=== PATIENT | male | born 1990 | race Hispanic/Latino ===

== ENCOUNTER 2019-04-29 19:56 | Emergency (ER) | payer OTHER ==
--- NOTE | 2019-04-29 20:32 | Event Note ---
ED Screening Note Date of service: 04/29/19 Time: 20:30 ED Screening Note: 29 y o male presents to Ed cc of Right big toe swelling, leaking and bleeding x 3 weeks This initial assessment/diagnostic orders/clinical plan/treatment(s) is/are subject to change based on patients health status, clinical progression and re- assessment by fellow clinical providers in the ED. Further treatment and workup at subsequent clinical providers discretion. Patient/guardian urged not to elope from the ED as their condition may be serious if not clinically assessed and managed. Initial orders include:
[2019-04-30] MEDS ORDERED: IBUPROFEN PO ONE (00:53)
[2019-04-30] MEDS ORDERED: XYLOCAINE 1% MPF 5 mL INFILTRATI ONE (00:53)
[2019-04-30] MEDS ORDERED: ZOFRAN ODT ONE (02:33)
[2019-04-30] MEDS ORDERED: TRIPLE ANTIBIOTIC TP ONE ×2 (02:40→02:41)
[2019-04-30] MEDS ORDERED: ZOFRAN ODT PO ONE (02:40)
--- NOTE | 2019-04-30 02:54 | Emergency Department Report ---
ED Extremity Problem HPI - General Chief complaint: Extremity Injury, Lower Stated complaint: RT FOOT PAIN Time Seen by Provider: 04/29/19 20:29 Source: patient Mode of arrival: Ambulatory Limitations: No Limitations - History of Present Illness Initial comments: Patient is a 29-year-old white male with no past medical history presents to the ED with complaint of painful swollen erythematous rash with purulent discharge on the right great toe due to a right great toe ingrown toenail infection for the last 1 month, worse in the last 2 days. Patient states that he has been taking Bactrim DS twice a day for the same but there has been no improvement. Patient denies fever, chills, nausea, vomiting, dizziness, chest pain, shortness of breath, numbness and tingling of the right great toe, traumatic injury or low back pain MD Complaint: extremity swelling (right great toe pain, swelling and erythematous rash), other (right great ingrown toenail infection) -: month(s) (1) Location: right, toe (right great toe) History of Same: Yes -: Yes myalgia, No fever, No associated dyspnea, No associated chest pain Radiation: none Severity scale (0 -10): 8 Quality: aching, sharp Consistency: constant Improves with: nothing Worsens with: nothing Associated Symptoms: denies other symptoms. denies: chest pain, shortness of breath, fever, myalgias, arthralgias, rash - Related Data Previous Rx's Medication Instructions Recorded Last Taken Type Ciprofloxacin HCl [Ciprofloxacin 500 mg PO Q12HR #20 tab 04/30/19 Unknown Rx TAB] Ibuprofen [Motrin] 600 mg PO Q8H PRN #20 tablet 04/30/19 Unknown Rx Allergies Allergy/AdvReac Type Severity Reaction Status Date / Time No Known Allergies Allergy Unverified 04/30/19 02:40 ED Review of Systems ROS: Stated complaint: RT FOOT PAIN Other details as noted in HPI Constitutional: denies: chills, fever Eyes: denies: eye pain, eye discharge, vision change ENT: denies: ear pain, throat pain Respiratory: denies: cough, shortness of breath, wheezing Cardiovascular: denies: chest pain, palpitations Endocrine: no symptoms reported Gastrointestinal: denies: abdominal pain, nausea, diarrhea Genitourinary: denies: urgency, dysuria Musculoskeletal: joint swelling (Right great toenail ), arthralgia (right great toe), other (swollen erythematous rash on right great toe due to ingrown right great toenail). denies: back pain Skin: rash (erythematous rash on right great toe due to ingrown right great toenail). denies: lesions Neurological: denies: headache, weakness, paresthesias Psychiatric: denies: anxiety, depression Hematological/Lymphatic: denies: easy bleeding, easy bruising ED Past Medical Hx - Past Medical History Previous Medical History?: No - Surgical History Past Surgical History?: No - Social History Smoking Status: Never Smoker Substance Use Type: None - Medications Home Medications: Home Medications Medication Instructions Recorded Confirmed Last Taken Type Ciprofloxacin HCl [Ciprofloxacin 500 mg PO Q12HR #20 tab 04/30/19 Unknown Rx TAB] Ibuprofen [Motrin] 600 mg PO Q8H PRN #20 tablet 04/30/19 Unknown Rx ED Physical Exam - General Limitations: No Limitations General appearance: alert, in no apparent distress - Head Head exam: Present: atraumatic, normocephalic, normal inspection - Eye Eye exam: Present: normal appearance, PERRL, EOMI. Absent: scleral icterus, conjunctival injection, nystagmus Pupils: Present: normal accommodation - ENT ENT exam: Present: normal exam, normal orophraynx, mucous membranes moist, TM's normal bilaterally, normal external ear exam - Neck Neck exam: Present: normal inspection, full ROM - Respiratory Respiratory exam: Present: normal lung sounds bilaterally. Absent: respiratory distress, wheezes, rales, rhonchi, chest wall tenderness - Cardiovascular Cardiovascular Exam: Present: regular rate, normal rhythm, normal heart sounds. Absent: systolic murmur, diastolic murmur, rubs, gallop - GI/Abdominal GI/Abdominal exam: Present: soft, normal bowel sounds. Absent: tenderness, guarding, rebound, hyperactive bowel sounds, hypoactive bowel sounds, organomegaly - Rectal Rectal exam: Present: deferred - Extremities Exam Extremities exam: Present: normal inspection, full ROM, tenderness (right great toe due to ingrown toenail), normal capillary refill, joint swelling (right great toe due to erythematous swollen ingrown right great toenail) - Back Exam Back exam: Present: normal inspection, full ROM. Absent: tenderness, CVA tenderness (L), muscle spasm, paraspinal tenderness - Neurological Exam Neurological exam: Present: alert, oriented X3, CN II-XII intact, normal gait, reflexes normal - Psychiatric Psychiatric exam: Present: normal affect, normal mood - Skin Skin exam: Present: warm, dry, intact, normal color, rash (erythematous nonfluctuant rash on right great toe due to ingrown toenail), erythema ED Course - Reevaluation(s) Reevaluation #1: 04/30/19 02:58 Patient is alert and oriented 3 and is not in distress. Patient was treated for pain in the ED and the right great toe ingrown toenail was cleaned and hand removed after application of local anesthetic, lidocaine 1% solution. The patient tolerated the procedure well. Patient was discharged home on antibiotics and pain medications and advised to follow-up with his primary care physician in 7-10 days for reevaluation. Patient was advised to return to the ED immediately if symptoms get worse. ED Medical Decision Making - Medical Decision Making Patient is alert and oriented 3 and is not in distress. Patient was treated for pain in the ED and the right great toe ingrown toenail was cleaned and hand removed after application of local anesthetic, lidocaine 1% solution. The patient tolerated the procedure well. Patient was discharged home on antibiotics and pain medications and advised to follow-up with his primary care physician in 7-10 days for reevaluation. Patient was advised to return to the ED immediately if symptoms get worse. - Differential Diagnosis cellulitis of right great toe; infected ingrown toenail Critical care attestation.: If time is entered above; I have spent that time in minutes in the direct care of this critically ill patient, excluding procedure time. ED Disposition Clinical Impression: Ingrown toenail of right foot with infection, Ingrown right greater toenail Disposition: DC-01 TO HOME OR SELFCARE Is pt being admited?: No Does the pt Need Aspirin: No Condition: Stable Instructions: Toenail/Fingernail Removal (ED), Cellulitis (ED) Additional Instructions: Take medications with food, drink plenty of fluids and follow-up with your [facility] care physician in 5-7 days for reevaluation. Return to the ED immediately if symptoms get worse. Prescriptions: Ciprofloxacin HCl [Ciprofloxacin TAB] 500 mg PO Q12HR #20 tab Ibuprofen [Motrin] 600 mg PO Q8H PRN #20 tablet PRN Reason: Pain Referrals: GREGORIA BORRERO MD [Primary Care Provider] - 3-5 Days Forms: Work/School Release Form(ED) Time of Disposition: 02:52 Print Language: [place]
[2019-04-30] MEDS ORDERED: PERCOCET 5/325 PO ONE (03:03)
[2019-04-30] MEDS ORDERED: REGLAN PO ONE (03:04)
== END 2019-04-30 03:20 | disposition home or self-care (01) ==
LOC: ED 19:56
DX: L60.0 Ingrowing nail (principal); L03.031 Cellulitis of right toe; Z79.899 Other long term (current) drug therapy
CPT/HCPCS: 99282; A6250; Q0162